=== PATIENT | male | born 1990 | race Caucasian/White ===

== ENCOUNTER 2024-01-27 11:53 | Emergency (ER) | payer SELFPAY ==
[~2024-01-27] VITALS: Ht 167.6 cm; Wt 70.0 kg
[2024-01-27 12:03] VITALS: O2SAT 100
[2024-01-27] MEDS: MAGNESIUM/ALUMINUM HYDROXIDE/SIMETHICONE 30ML UDC PO STA (12:43)
[2024-01-27] MEDS: KETOROLAC 30MG/ML VIAL IM ONE (12:43)
[2024-01-27] MEDS: FAMOTIDINE 20MG TABLET PO ONE (12:44)
[2024-01-27] MEDS ORDERED: LORAZEPAM 1MG TABLET PO ONE (13:30)
[2024-01-27 14:04] LABS: BASOPHILS % 0.3 % (0.0-2.0); EOSINOPHILS % 0.3 % (0.0-5.0); HEMATOCRIT. 46.2 % (42.0-52.0); HEMOGLOBIN. 15.7 g/dL (14.0-18.0); LYMPHOCYTES % 9.5 % (20.0-50.0); MEAN CORPUSCULAR HEMOGLOBIN 30.5 pg (28.0-32.0); MEAN CORPUSCULAR HGB CONC 34.1 g/dL (31.0-37.0); MEAN CORPUSCULAR VOLUME 89.7 fL (80.0-94.0); MEAN PLATELET VOLUME 9.7 fl (7.4-10.4); MONOCYTES % 5.5 % (2.0-8.0); NEUTROPHILS % 84.4 % (40.0-76.0); PLATELET 276 x1000/uL (130-400); RED BLOOD CELL COUNT 5.15 mill/uL (4.7-6.1)
[2024-01-27 14:12] LABS: CHLORIDE 104 mEq/L (98-107); SODIUM 140 mEq/L (136-145)
[2024-01-27 14:13] LABS: CARBON DIOXIDE 29 mEq/L (21-32)
[2024-01-27 14:18] LABS: CREATININE 0.8 mg/dL (0.6-1.3); GLUCOSE 97 mg/dL (70-105); TROPONIN I HIGH SENSITIVITY 17 ng/L (3.0-53); UREA NITROGEN BLOOD 15 mg/dL (9-23)
[2024-01-27] MEDS ORDERED: IBUP-2029 MT (14:40)
[2024-01-27] MEDS: LORAZEPAM 1MG TABLET PO NR (15:57)
[2024-01-27 15:58] VITALS: BP 124/65; PULSE 68; RESP 18; TEMP 36.66960; O2SAT 100
== END 2024-01-27 16:38 | disposition home or self-care (01) ==
LOC: ER 11:53
DX: R07.89 Other chest pain (principal); F41.9 Anxiety disorder, unspecified
CPT/HCPCS: 99285; 71045; 80048; 85025; 84484; 36415; 93005; 96372; J1885